=== PATIENT | female | born 1990 | race Caucasian/White ===

== ENCOUNTER 2023-01-03 09:15 | Day surgery (SDC) | payer OTHER ==
[2023-01-02 10:42] VITALS: BMI 34.1
[2023-01-03 10:40] LABS: BHCG - Serum Negative (NEGATIVE); Pregs Control Background? CLEAR/WHITE (CLR/WHITE); Pregs Control Bar Appear? YES (CONTROL BAR)
[2023-01-03] MEDS ORDERED: Lidocaine 1% (PF) 30 ML VIAL ONE (10:58)
[2023-01-03] MEDS ORDERED: EPINEPHrine 1 MG/ML AMP ONE (10:58)
[2023-01-03] MEDS ORDERED: Ciprofloxacin 0.2% Otic (0.25ML CONTAINER) ONE (10:58)
[2023-01-03] MEDS ORDERED: ePHEDrine Sulfate 50 MG/10 ML VIAL ONE (11:08)
[2023-01-03] MEDS ORDERED: Phenylephrine 10 MG/ML VIAL ONE (11:08)
[2023-01-03] MEDS ORDERED: Lidocaine 1% PF 5 ML VIAL ONE (11:08)
[2023-01-03] MEDS ORDERED: PROPOFOL 200 MG/20 ML VIAL ONE (11:08)
[2023-01-03] MEDS ORDERED: fentaNYL PF 100 MCG/2 ML SYRINGE ONE (11:09)
[2023-01-03] MEDS ORDERED: Scopolamine 1.5 mg/72 hour Patch ONE (11:34)
[2023-01-03] MEDS ORDERED: Bacitracin Zinc Ointment 30 gm TUBE ONE (12:10)
[2023-01-03] MEDS ORDERED: Meperidine HCl/PF 25 MG/ML VIAL ONE (12:36)
[2023-01-03] MEDS ORDERED: fentaNYL 50 mcg/mL 1 mL Vial ONE (13:12)
[2023-01-03] MEDS ORDERED: HYDROcodone/Acetaminophen 5/325 mg Tablet ONE (14:06)
== END 2023-01-03 14:20 | disposition home or self-care (01) ==
LOC: SDC 09:15
PROVIDERS: ATTEND Specialist
PROC: 0NB50ZZ Excision of Right Temporal Bone, Open Approach (ICD-10-PCS; principal; 2023-01-03)
PROC: 09U507Z Supplement Right Middle Ear with Autologous Tissue Substitute, Open Approach (ICD-10-PCS; principal; 2023-01-03)
DX: H65.491 Other chronic nonsuppurative otitis media, right ear (principal); H72.2X1 Other marginal perforations of tympanic membrane, right ear; H71.91 Unspecified cholesteatoma, right ear; H74.01 Tympanosclerosis, right ear; J45.909 Unspecified asthma, uncomplicated; K21.9 Gastro-esophageal reflux disease without esophagitis; Z87.820 Personal history of traumatic brain injury; Z79.899 Other long term (current) drug therapy
CPT/HCPCS: 84703; 85014; J0171; J2001; J2175; J2370; J2704; J3010